=== PATIENT | female | born 1960 | race Caucasian/White ===

== ENCOUNTER → 2018-03-28 17:31 | Outpatient (CLI) | payer BC | END | disposition home or self-care (01) | LOC: D.LABREF 17:31 | DX: N39.0 Urinary tract infection, site not specified (principal) ==

== ENCOUNTER → 2018-04-10 15:22 | Outpatient (CLI) | payer BC | END | disposition home or self-care (01) | LOC: D.RAD 09:00 | DX: Z87.442 Personal history of urinary calculi (principal) ==

== ENCOUNTER → 2018-04-12 17:22 | Outpatient (CLI) | payer BC | END | disposition home or self-care (01) | LOC: D.LABREF 17:22 | DX: D72.829 Elevated white blood cell count, unspecified (principal) ==